=== PATIENT | female | born 2000 | race Caucasian/White ===

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

== ENCOUNTER 2023-01-27 07:08 | Emergency (ER) | payer BC, SELFPAY ==
[2023-01-27 07:09] VITALS: BP 145/73; PULSE 77; RESP 16; TEMP 36.6; O2SAT 95; BMI 36.1
--- NOTE | 2023-01-27 07:55 | EDS_ITS ---
HPI History of Present Illness Chief Complaint: Dental Detail of Chief Complaint: Right-sided jaw pain. Informant: patient Onset/Context/Timing Onset: Days Context: Gradual Onset Timing: Continuous Current Severity: Moderate Maximum Severity: Moderate Relieved by: NSAIDs Associated Symptoms Assocated Symptom - Dental: Negative for fever, jaw swelling, face swelling, cold sensitivity, hot sensitivity or other Narrative Narrative: 22-year-old female past medical history of migraine headaches. States last several days she has developed pain initially in her right upper jaw and right lower jaw also. Denies any trauma. No swelling. No fever. Called her dentist office on is a started on ibuprofen 800 3 times daily and Pen-Vee K 500 mg 4 times a day. She does not have any relief. Dentist saw her yesterday and did not have a specific cause for her pain. No prior history. Denies ear or throat pain. Prior similar symptoms: No Recent Illness/Hospitalization: No PFSH PFSH Medical History (Updated 01/27/23 @ 08:[address] Jaylen Valle MD) Fx wrist Migraines Home Medications BCP #1 ea 09/25/19 [History Last Taken Unknown] Allergy/AdvReac Type Severity Reaction Status Date / Time amoxicillin AdvReac Hives Verified 01/27/23 07:08 Surgical History Torn tendon Social History Smoking Status: Never smoker ROS ROS ED ROS Narrative Denies recent illness. Review of Systems ROS Unobtainable: Denies due to encephalopathy Constitutional Constitutional ED: Denies chills or fever(s) Eyes Eyes: Denies blurry vision ENT ENT ED: Denies ear pain Cardiovascular Cardiovascular: Denies chest pain Respiratory/Chest Respiratory/Chest: Denies cough or dyspnea Gastrointestinal Gastrointestinal: Denies abdominal pain Genitourinary Genitourinary ED: Denies dysuria or hematuria Musculoskeletal Musculoskeletal: Denies arthralgias or back pain Integumentary Denies abscess or Abrasions Neurologic Neurologic: Denies headache(s) Psychiatric Psychiatric: Denies anxiety or depression Endocrine Endocrinology: Denies cold intolerance Hematologic/Lymphatic Hematologic/Lymphatic: Denies easy bleeding, easy bruising or lymphadenopathy Allergic/Immunologic Allergic/Immunologic ED: Denies mouth swelling, tongue swelling or urticaria EXAM Physical Exam Narrative Exam Narrative: 22-year-old female no acute distress. Vital signs stable afebrile. H EENT exam normal. TMs normal. Posterior pharynx normal. Moist mucous membranes. She is is very well-appearing dentition. No obvious cavities. No gum swelling or abscess. No trouble opening or closing her mouth. No trismus. No TMJ tenderness. Neck nontender. No lymphadenopathy. No meningismus. Lungs clear to auscultation bilaterally. Heart regular rhythm abdomen soft nontender. Moving all 4 extremities. Back nontender. Neurologically she is awake alert. Const Vital Signs: 01/27/23 07:09 Temperature 97.8 F Temperature Source Temporal Pulse Rate 77 Respiratory Rate 16 Blood Pressure 145/73 H Blood Pressure Mean 97 Pulse Ox 95 Positive well nourished and well developed; Negative for cachectic, contractures or unkempt General Appearance ED: well developed and NAD; Negative for unkempt, cachectic, contractures or pallor Nutritional Appearance: Negative for cachectic HEENT Reports TM's clear; Denies other Negative for trauma, tenderness or other Face and Sinus: Negative for sinuses nontender Tympanic Membrane ED: Yes TM's clear Mouth ED: Yes oral and palatal mucosa normal, Yes lips normal, Yes tongue normal, Yes salivary gland normal, No mouth trauma, No oral and palatal mucosa abnormal and No salivary gland abnormal Mouth: oral and palatal mucosa normal, lips normal, tongue normal, salivary gland normal, No mouth trauma, No oral and palatal mucosa abnormal and No salivary gland abnormal Teeth and Gingiva: Negative for abnormal tooth and associated gingiva, caries, gingiva abnormal, poor dentition or teeth discoloration Throat: posterior oropharynx normal Eyes PERRL and EOMs intact bilaterally General Eye ED: Negative for pale conjunctiva or scleral icterus Visual Acuity: Negative for other Neck no lymphadenopathy, supple and no JVD General: normal visual inspection; Negative for anterior neck swelling, tender ness or submandibular swelling Lymph Lymphatic: no lymphadenopathy noted; Negative for lymphadenopathy Chest Wall inspection of chest normal and palpation of chest normal Chest: Negative for other Resp normal respiratory effort, no retractions and clear to auscultation bilaterally Effort and Inspection: Negative for other Cardio regular rate, regular rhythm, S1 normal heart sound, S2 normal heart sound and no murmurs Jugular Venous Distention: Negative for other Palpation: Negative for palpable S3 or palpable S4 Rate: Negative for bradycardia or tachycardic Rhythm: Negative for abnormal rhythm GI normal to inspection, nondistended, normoactive bowel sounds, non-tender, non- distended and no masses Inspection: Negative for other Palpation: soft Bladder / Kidney Exam: No other Back/Spine no CVA tenderness General Back: Negative for CVA tenderness Cervical Spine: Negative for other Thoracic Spine / Upper Back: thoracic spinal tenderness and paraspinal muscle tenderness Extremity normal to inspection and no joint enlargement General Extremety ED: Negative for edema General Extremity: Negative for edema Neuro oriented x3, CN's II-XII intact bilaterally, moves all extremities, no focal motor deficits and no sensory deficits noted Sensorium / Orientation: alert, oriented to person, oriented to place and oriented to time Motor Exam: strength 5/5 throughout Psych mental status grossly normal Appearance: Negative for unkempt Attitude: No agitated and No other Mood & Affect: Negative for depressed Skin no rashes or lesions noted and no wounds General Skin Exam: Negative for pallor MDM MDM MDM Narrative Medical decision making narrative: 22-year-old female with jaw dental pain with a completely normal exam. Completely normal HEENT exam. No swelling. No caries. No abscesses. He is currently on ibuprofen. I also instructed to take Tylenol. She can continue the antibiotic that her dentist prescribed but I see no signs of any type of infection of her ears her throat or her teeth. I explained to him that we typically do not use narcotic pain medication for this type of situations and since we do not have a specific cause. She can follow-up with her primary care physician or dentist if not improving by mid next week. History & Record Review Discussion w/independent historian: Patient Additional record(s) reviewed:: Prior inpatient record, Prior outpatient record, Prior ED visit and Prior labs Discharge Plan Triage Chief Complaint: Dental ED Provider: Jaylen Valle Dx/Rx/DC Orders Clinical Impression: Pain, dental Instructions: ED Dental Pain Prescriptions: No Action (DME) BCP Qty: 1 Primary Care Provider: Jasmin Colin Referrals: Jasmin Colin MD [Primary Care Provider] - Activity Restrictions/Additional Instructions: Continue the ibuprofen and Tylenol for pain. Follow-up with your primary care provider and/or dentist if not improving. No specific cause for your pain today. Disposition Disposition: Home, Self Care
== END 2023-01-27 08:14 | disposition home or self-care (01) ==
LOC: ED 08:03
PROVIDERS: Emergency Provider Emergency Medicine; PCP Pediatrics; Referring Provider Emergency Medicine; Visit Provider Emergency Medicine
DX: K08.89 Other specified disorders of teeth and supporting structures (principal)
CPT/HCPCS: 99282